=== PATIENT | female | born 1970 | race Caucasian/White ===

== ENCOUNTER → 2016-05-06 20:48 | Emergency (ER) | payer SELFPAY | END | disposition left against medical advice (07) | LOC: ER 20:48 | DX: Z53.21 Procedure and treatment not carried out due to patient leaving prior to being seen by health care provider (principal) ==

== ENCOUNTER 2016-05-07 08:16 | Emergency (ER) | payer SELFPAY | END 2016-05-07 09:38 | disposition home or self-care (01) | LOC: ER 08:16 | DX: J20.9 Acute bronchitis, unspecified (principal); J11.1 Influenza due to unidentified influenza virus with other respiratory manifestations; J45.909 Unspecified asthma, uncomplicated; Z90.710 Acquired absence of both cervix and uterus; Z98.51 Tubal ligation status; Z88.5 Allergy status to narcotic agent; Z88.6 Allergy status to analgesic agent | CPT/HCPCS: 87502; 96372; J1885 ==

== ENCOUNTER 2016-05-09 05:27 | Emergency (ER) | payer SELFPAY | END 2016-05-09 07:08 | disposition home or self-care (01) | LOC: ER 05:27 | DX: J10.1 Influenza due to other identified influenza virus with other respiratory manifestations (principal); J45.909 Unspecified asthma, uncomplicated; Z90.710 Acquired absence of both cervix and uterus; Z98.51 Tubal ligation status; Z88.5 Allergy status to narcotic agent; Z88.6 Allergy status to analgesic agent | CPT/HCPCS: 36415; 96372 ==